=== PATIENT | female | born 1965 | race Caucasian/White ===

== ENCOUNTER 2019-02-17 17:39 | Emergency (ER) | payer OTHER ==
[2019-02-17 17:53] VITALS: BP 140/85; PULSE 94; TEMP 98.1; BMI 25.8
[2019-02-17] MEDS ORDERED: LIDOCAINE 5% TOPICAL PATCH TP ONE (18:35)
[2019-02-17] MEDS ORDERED: KETOROLAC TROMETHAMINE 60 MG/2 ML VIAL IM ONE (18:35)
--- NOTE | 2019-02-17 18:36 | PDOC ---
History of Present Illness - General Chief Complaint: Pain, Acute Stated Complaint: R.SHOULDER PAIN/RADIATED TO ELBOW Time Seen by Provider: 02/17/19 18:06 History Source: Patient Exam Limitations: No Limitations Past History - Travel Traveled outside of the country in the last 30 days: No Close contact w/someone who was outside of country & ill: No - Past Medical History Allergies/Adverse Reactions: Allergies Allergy/AdvReac Type Severity Reaction Status Date / Time No Known Allergies Allergy Verified 02/17/19 17:52 Home Medications: Ambulatory Orders Valsartan [Diovan] 50 mg PO DAILY 10/08/15 Clonazepam [Klonopin] 1 mg PO BID 02/17/19 Cyclobenzaprine HCl [Flexeril -] 10 mg PO HS #10 tablet 02/17/19 Divalproex *ER* [Depakote *ER* -] 500 mg PO TID 02/17/19 Levothyroxine [Synthroid -] 125 mcg PO DAILY 02/17/19 Methylprednisolone [Medrol Dose Luis] 4 mg PO ASDIR #21 tablet 02/17/19 Olanzapine [Zyprexa] 10 mg PO DAILY 02/17/19 Asthma: Yes HTN: Yes Psychiatric Problems: Yes (ANXIETY, DOUBLE PERSONALITY, DEPRESSION) Thyroid Disease: Yes (CANCER) - Suicide/Smoking/Psychosocial Hx Smoking Status: No Smoking History: Never smoked Have you smoked in the past 12 months: No Number of Cigarettes Smoked Daily: 0 Information on smoking cessation initiated: No Hx Alcohol Use: No Drug/Substance Use Hx: No Substance Use Type: None Review of Systems - Review of Systems Able to Perform ROS?: Yes Comments:: 02/17/19 19:43 CONSTITUTIONAL: Absent: fever, chills, diaphoresis, generalized weakness, malaise, loss of appetite MUSCULOSKELETAL: Present: R shoulder pain Absent: arthralgia, joint swelling SKIN: Absent: rash, itching, pallor NEUROLOGIC: Absent: headache, focal weakness or paresthesias, dizziness, unsteady gait, seizure, mental status changes, bladder or bowel incontinence PSYCHIATRIC: Absent: anxiety, depression, suicidal or homicidal ideation, hallucinations. Is the patient limited [place]ish proficient: No *Physical Exam - Vital Signs Last Vital Signs Temp Pulse Resp BP Pulse Ox 98.1 F 94 H 18 140/85 98 02/17/19 17:46 02/17/19 17:46 02/17/19 17:46 02/17/19 17:46 02/17/19 17:46 - Physical Exam Comments: 02/17/19 19:43 GENERAL: Well developed, well nourished. Awake and alert. No acute distress. NECK: Supple. Full ROM. No JVD. Carotid pulses 2+ and symmetric, without bruits. No thyromegaly. No lymphadenopathy. MUSCULOSKELETAL Palpable spasm to the R trapezius with tenderness into the GH join and over the AC joint. Decreased ROM in all directions d/t spasm. Normal range of motion at all other joints. No bony deformities. No CVA tenderness. EXTREMITIES: No cyanosis. No clubbing. No edema. No calf tenderness. SKIN: Warm and dry. Normal capillary refill. No rashes. No jaundice. NEUROLOGICAL: Alert, awake, appropriate. Cranial nerves 2-12 intact. No deficits to light touch and temperature in face, upper extremities and lower extremities. No motor deficits in the in face, upper extremities and lower extremities. Normoreflexic in the upper and lower extremities. Normal speech. Toes are down- going bilaterally. Gait is normal without ataxia. Medical Decision Making - Medical Decision Making 02/17/19 19:45 the patient is a 54-year-old female with past medical history of bipolar disorder, hypertension, hypothyroidism, who presents to the ER today for right shoulder pain. The patient states that she has had the pain for approximately 3 days and the pain has gotten worse over that time. She says [place] 3 days ago she lifted some heavy laundry bags but she states that she does this frequently. She states she is right-hand dominant. She states that it hurts to move her shoulder in any direction. Denies fevers, chills, trauma, fall, numbness and tingling and weakness to the affected extremity. She does admit to radiating pain from the neck down to the arm. A/P: Cervical radiculopathy. On exam patient exquisitely tender in the right trapezius leading to the GH joint. Unable to do any special testing for the shoulder due to spasm Toradol and lidocaine patch given X-ray obtained. No dislocations or fractures. No AC sprain. Suspect cervical radiculopathy. Patient feels better after medication. We will discharge home on short course of steroids and Flexeril. Orthopedic follow-up given. I discussed the physical exam findings, ancillary test results and final diagnoses with the patient. I answered all of the patient's questions. The patient was satisfied with the care received and felt comfortable with the discharge plan and treatment plan. The Patient agrees to follow up with the primary care physician/specialist within 24-72 hours. Return precautions were given. *DC/Admit/Observation/Transfer Diagnosis at time of Disposition: Cervical radicular pain - Discharge Dispostion Disposition: HOME Condition at time of disposition: Stable Decision to Admit order: No - Prescriptions Prescriptions: Cyclobenzaprine HCl [Flexeril -] 10 mg PO HS #10 tablet Methylprednisolone [Medrol Dose Luis] 4 mg PO ASDIR #21 tablet - Referrals Referrals: Jovani Tinsley DO [Staff Physician] - - Patient Instructions Printed Discharge Instructions: DI for Cervical Radiculopathy Additional Instructions: You were evaluated for your shoulder pain today. I suspect that his cervical radiculopathy or a muscle spasm pressing on the nerve going down the arm. Please take the Medrol Dosepak as prescribed starting tomorrow. You may take the muscle relaxer at night. Do not drink or drive after taking this medication as it may make you drowsy. Please take approximately 30 minutes prior to her other bedtime medications He may use warm compresses on the area. It appears symptoms do not improve within the week, please follow-up with orthopedics. Referral has been provided for you. Return to the ER for any new or worsening symptoms. - Post Discharge Activity
[2019-02-17] MEDS ORDERED: LIDOCAINE 5% TOPICAL PATCH ONE (18:47)
[2019-02-17] MEDS ORDERED: KETOROLAC TROMETHAMINE 60 MG/2 ML VIAL ONE (18:47)
[2019-02-17] MEDS ORDERED: LIDOCAINE PATCH REMOVAL MC SCH (22:00)
== END 2019-02-17 19:56 | disposition home or self-care (01) ==
LOC: JER 17:39 → JERFT 17:39
PROC: 3E0233Z Introduction of Anti-inflammatory into Muscle, Percutaneous Approach (ICD-10-PCS; principal; 2019-02-17)
DX: M54.12 Radiculopathy, cervical region (principal); I10 Essential (primary) hypertension; E03.9 Hypothyroidism, unspecified; F31.9 Bipolar disorder, unspecified
CPT/HCPCS: 73030-TC-RT-FY; 96372; 99281-25

== ENCOUNTER → 2019-07-19 | Day surgery (SDC) | payer OTHER | END | disposition home or self-care (01) | LOC: FMAMMOTONE 12:34 | PROVIDERS: ATTEND Family Medicine | PROC: 0HBT3ZX Excision of Right Breast, Percutaneous Approach, Diagnostic (ICD-10-PCS; principal; 2019-07-19) | DX: N64.89 Other specified disorders of breast (principal); R92.1 Mammographic calcification found on diagnostic imaging of breast | CPT/HCPCS: 19081; 87899; 88305-TC; A4648 ==